=== PATIENT | female | born 1975 | race Caucasian/White ===

== ENCOUNTER 2020-10-21 17:36 | Emergency (ER) | payer OTHER ==
[~2020-10-21] VITALS: Ht 170.2 cm; Wt 79.4 kg
[2020-10-21] MEDS ORDERED: OMEPRAZOLE 20 M20 M1 PO (17:54)
[2020-10-21] MEDS ORDERED: BIRTH CONTROL (17:54)
[2020-10-21 20:25] LABS: ABSOLUTE BASOPHILS 0.1 thou/uL (0.0-0.2); ABSOLUTE EOSINOPHILS 0.2 thou/uL (0.0-0.7); ABSOLUTE LYMPHOCYTES 2.6 thou/uL (0.8-5.3); ABSOLUTE MONOCYTES 0.5 thou/uL (0.0-1.2); ABSOLUTE NEUTROPHILS 3.5 thou/uL (1.6-8.1); BASOPHILS 0.8 %; EOSINOPHILS 3.1 %; HEMATOCRIT 42.4 % (37.0-47.0); HEMOGLOBIN 13.7 gm/dL (12.0-15.0); LYMPHOCYTES 37.5 %; MCH 27.6 pg (26.0-34.0); MCHC 32.2 g/dL (28.0-37.0); MCV 85.7 fL (80.0-100.0); MONOCYTES 7.5 %; MPV 7.2 fl. (7.2-11.1); NUCLEATED RBCS 0 /100WBC; PLATELET COUNT* 332 thou/uL (150-400); POLYS 51.1 %; RBC 4.95 mil/uL (4.20-5.00); RDW-CV 14.1 % (10.5-14.5); WBC 6.8 thou/uL (4.0-11.0)
[2020-10-21 20:41] LABS: CALCIUM 9.6 mg/dL (8.5-10.1); CREATININE 0.7 mg/dL (0.6-1.3); POTASSIUM 3.7 mmol/L (3.5-5.1)
[2020-10-21 20:46] LABS: ALBUMIN 4.4 g/dL (3.4-5.0); TOTAL BILIRUBIN 0.3 mg/dL (<0.1-1.0); TOTAL PROTEIN 8.1 g/dL (6.4-8.2)
[2020-10-21] MEDS ORDERED: NAPROSYN500 MG PO (21:52)
[2020-10-21] MEDS ORDERED: NORCO5 PO (21:52)
[2020-10-21] MEDS ORDERED: MEDROLDOSEPACK PO (21:52)
[2020-10-21 22:35] VITALS: BP 128/78
== END 2020-10-21 22:36 | disposition home or self-care (01) ==
LOC: M.ERS 17:36
PROVIDERS: Physician Assistant
DX: M54.2 Cervicalgia (principal); K14.9 Disease of tongue, unspecified; K21.9 Gastro-esophageal reflux disease without esophagitis; Z90.89 Acquired absence of other organs